=== PATIENT | female | born 1985 | race Caucasian/White ===

== ENCOUNTER → 2020-06-25 01:27 | Outpatient (CLI) | payer OTHER, SELFPAY ==
[2020-06-25 18:53] LABS: SARS-CoV-2 RNA PCR Negative
== END ==
PROVIDERS: PCP Family Medicine Adolescent Medicine; Visit Provider Internal Medicine Gastroenterology
DX: Z01.812 Encounter for preprocedural laboratory examination (principal); Z20.822 Contact with and (suspected) exposure to COVID-19
CPT/HCPCS: C9803; U0003; U0005

== ENCOUNTER 2020-06-28 02:54 | Day surgery (SDC) | payer OTHER, SELFPAY ==
[2020-06-22 14:03] VITALS: BMI 29.2
[2020-06-28] MEDS: LACTATED RINGERS 1,000 ML 150 ML IV CONT (13:38)
[2020-06-28 13:48] VITALS: BP 110/70; PULSE 67; RESP 16; TEMP 36.6; O2SAT 98; BMI 28.9
--- NOTE | 2020-06-28 13:48 | WPDANESEPPF ---
Anes - Initial Pre Proc Eval Procedure: Operation Date: 06/28/20 14:15 Proposed Procedures p Esophagogastroduodenoscopy & Colonoscopy - Roc Carias MD Date/Time: 06/28/20 13:48 Surgeon: Roc Carias MD Pre Op Diagnosis: GERD, Diarrhea Patient Data Age: 35 Gender: F Height: 5 ft 6 in Weight: 82 kg Allergies Allergy/AdvReac Type Severity Reaction Status Date / Time SHELLFISH Allergy Mild Swelling Uncoded 06/28/20 13:43 of Lip/Tongue/Throat Home Medications Medication Instructions Recorded Confirmed Type bupropion HCl 150 mg PO BID 06/22/20 06/28/20 History dextroamphetamine-amphetamine 20 mg PO BID 06/22/20 06/28/20 History famotidine 20 mg PO DAILY 06/22/20 06/28/20 History Patient hx anesthesia problems: none Family hx anesthesia problems: none PMFSH Past Medical History Medical History (Updated 06/28/20 @ 13:45 by Donnie Duckworth MD) GERD (gastroesophageal reflux disease) Family History Family History (Updated 11/12/13 @ 07:13 by DOCTOR UNKNOWN) Father Hypertension Family history of heart disease in male family member before age 55 Social History Social History Years smoked: 16 Smoking status: Current every day smoker Tobacco type: cigarettes Alcohol intake: current Drinks per week: 2 Living arrangements: with family Gender identity (if verbalized by the patient): Female Spiritual care concerns: No Anes - Eval Final PreProcedure Day of Procedure 06/28/20 13:48 Patient weight: overweight Heart: regular rate and rhythm Lungs: clear to auscultation Airway: Mallampati scale class II Neurological: alert and oriented Last oral intake: >/= 8 hours ASA classification: II Emergent: no Anesthetic plan: proceed Anesthesia type and monitoring: general GIVS and standard monitoring Informed Consent: The patient's anesthetic plan and its attendant risks and benefits were discussed with the patient/family/POA. Questions were solicited and answers provided to the satisfaction of the patient/family/POA.
--- NOTE | 2020-06-28 14:41 | PM.HPGS ---
History of Present Illness History of Present Illness Consent: Risks, benefits, and alternatives have been discussed and questions answered. Patient agrees to proceed with procedure. Chief complaint: GERD, Diarrhea Narrative: Jonna Cruz is a 35 year old female with years of GERD on pepcid/nexium as needed but more symptomatic lately, also she is due to have a colonoscopy (last one 7 years ago, her mother had anal cancer) Review of Systems Constitutional: Constitutional: Denies headache(s) and Denies weakness Eyes: Eyes: Denies blurry vision ENT: Reports Normal hearing present, Denies headache(s) and Denies neck pain Cardiovascular: Cardiovascular: Denies chest pain and Denies dyspnea Respiratory: Respiratory: Denies dyspnea Gastrointestinal: Gastrointestinal: Reports no additional gastrointestinal complaints Genitourinary: Genitourinary: Denies dysuria Musculoskeletal: Musculoskeletal: Denies neck pain Integumentary/Breasts: Skin/Breast: Denies dry skin Neurologic: Reports Normal hearing present, Denies headache(s) and Denies weakness Psychiatric: Psychiatric: Denies anxiety Endocrine: Endocrine: Denies change in body appearance Hematologic/Lymphatic: Hematologic/Lymphatic: Denies easy bleeding Allergic/Immunologic: Allergic/Immunologic: Denies urticaria PMFSH Past Medical History Medical History (Updated 06/28/20 @ 14:42 by Roc Carias MD) Colon cancer screening GERD (gastroesophageal reflux disease) Family History Family History (Updated 11/12/13 @ 07:13 by DOCTOR UNKNOWN) Father Hypertension Family history of heart disease in male family member before age 55 Social History Social History Years smoked: 16 Smoking status: Current every day smoker Tobacco type: cigarettes Alcohol intake: current Drinks per week: 2 Living arrangements: with family Gender identity (if verbalized by the patient): Female Spiritual care concerns: No Meds Home Medications and Allergies Home Medications Medication Instructions Recorded Confirmed Type bupropion HCl 150 mg PO BID 06/22/20 06/28/20 History dextroamphetamine-amphetamine 20 mg PO BID 06/22/20 06/28/20 History famotidine 20 mg PO DAILY 06/22/20 06/28/20 History Allergies Allergy/AdvReac Type Severity Reaction Status Date / Time SHELLFISH Allergy Mild Swelling Uncoded 06/28/20 13:43 of Lip/Tongue/Throat Vital Signs Vital Signs - 24 hr 06/28/20 13:48 Temperature 97.9 F Pulse Rate 67 Respiratory Rate 16 Blood Pressure 110/70 Pulse Oximetry 98 Exam Const: General: comfortable and no acute distress HENMT: General nose exam: Normal nares present Eyes: General: appearance normal, both eyes and all related structures Neck: Neck: no JVD Resp: Auscultation: clear to auscultation bilaterally Cardio: Rate: regular rate Rhythm: regular rhythm GI: Inspection: non-distended GI Palp: Yes Soft to palpation Skin: General skin exam: normal color Neuro: General: gait normal Speech: normal speech Extrem: General: normal to inspection Psych: Mental Status: mental status grossly normal Assessment and Plan Assessment and plan (1) Colon cancer screening: Code(s): Z12.11 - Encounter for screening for malignant neoplasm of colon Status: Acute Assessment and Plan: colonoscopy (2) GERD (gastroesophageal reflux disease): Code(s): K21.9 - Gastro-esophageal reflux disease without esophagitis Status: Inactive Assessment and Plan: egd with bx
[2020-06-28] MEDS: BENZOCAINE (*SP) 60 ML SPRAY CAN (HURRICAINE) 1 SPRAY MUCOUS MEM (14:48)
--- NOTE | 2020-06-28 15:14 | SUR.OPER ---
EGD START 1449, END 1455 COLONOSCOPY START 1501, END 1512
[2020-06-28 15:15] VITALS: BP 89/53; PULSE 72; RESP 15; O2SAT 94
[2020-06-28 15:25] VITALS: BP 92/53; PULSE 71; RESP 16; O2SAT 99
[2020-06-28 15:35] VITALS: BP 96/60; PULSE 60; RESP 18; O2SAT 100
== END 2020-06-28 16:01 | disposition home or self-care (01) ==
PROVIDERS: PCP Family Medicine Adolescent Medicine; Visit Provider Internal Medicine Gastroenterology
PROC: 0DJ08ZZ Inspection of Upper Intestinal Tract, Via Natural or Artificial Opening Endoscopic (ICD-10-PCS; CPT 43235; principal; 2020-06-28 14:15)
DX: Z12.11 Encounter for screening for malignant neoplasm of colon (principal); D12.3 Benign neoplasm of transverse colon; D12.4 Benign neoplasm of descending colon; K64.8 Other hemorrhoids; R19.7 Diarrhea, unspecified; K29.50 Unspecified chronic gastritis without bleeding; K21.00 Gastro-esophageal reflux disease with esophagitis, without bleeding; K44.9 Diaphragmatic hernia without obstruction or gangrene; F17.210 Nicotine dependence, cigarettes, uncomplicated; Z80.0 Family history of malignant neoplasm of digestive organs
CPT/HCPCS: 45385; 43239; 88305; C9803; J2704; J7120; U0003; U0005

== ENCOUNTER → 2021-07-18 13:57 | Outpatient (CLI) | payer BC, SELFPAY ==
--- NOTE | ~2021-07-18 | XR_ITS ---
EXAMINATION: XR chest 2V Exam Date/Time: 07/18/2021 14:12 CDT CLINICAL HISTORY: R07.9 - Chest pain, unspecified Comparison: 03/17/13. RESULT: Lines, tubes, and devices: None. Lungs and pleura: Clear. Cardiomediastinal silhouette: Stable cardiomediastinal silhouette. Other: No acute osseous or upper abdominal finding. IMPRESSION: No acute cardiopulmonary process Reviewed, dictated and finalized at location K.
== END ==
PROVIDERS: PCP Physician Assistant; Visit Provider Physician Assistant
DX: R07.9 Chest pain, unspecified (principal)
CPT/HCPCS: 71046

== ENCOUNTER 2022-07-31 12:50 | Outpatient (CLI) | payer BC, SELFPAY ==
--- NOTE | ~2022-07-31 | CT_ITS ---
EXAMINATION: CTA brain DATE: 07/31/2022 13:22 INDICATION: Tinnitus, right ear. TECHNIQUE: Computed tomographic angiography (CTA) of the head was performed without and with 100 mL O mnipaque-350 intravenous contrast. Automated exposure control and iterative reconstruction technique were employed. The dose-length product was 1147.12 mGy-cm. Maximum intensity projection 3D reconstru ctions were created. Volume-rendered 3D reconstructions of the intracranial arteries were created by the technologist on a separate workstation. COMPARISON: None. FINDINGS: There is no intracranial hemorrhage, acute infarction, or abnormal intracranial mass lesion . The ventricles are normal in size. The orbits are normal. The paranasal sinuses are clear. The mast oid air cells are normal. The internal auditory canals and inner and middle ears are normal. The vert ebral arteries are codominant. There is no significant stenosis of basilar artery or the posterior ce rebral arteries. There is no significant stenosis of the intracranial internal carotid arteries or an terior or middle cerebral arteries. Anterior communicating artery is normal. Posterior communicating arteries are not identified. There is no aneurysm. IMPRESSION: 1. Normal brain. 2. No aneurysm or significant intracranial arterial stenosis. Reviewed, dictated and finalized at location A.
== END 2022-07-31 12:51 ==
PROVIDERS: PCP Family Medicine Adolescent Medicine; Visit Provider Otolaryngology
DX: H93.19 Tinnitus, unspecified ear (principal)
CPT/HCPCS: 70496; Q9967

== ENCOUNTER 2022-08-02 13:03 | Outpatient (CLI) | payer BC, SELFPAY | END 2022-08-02 13:04 | disposition home or self-care (01) | LOC: ANHAUDASC 13:04 | PROVIDERS: PCP Family Medicine Adolescent Medicine; Visit Provider Otolaryngology | DX: H93.19 Tinnitus, unspecified ear (principal) | CPT/HCPCS: 92557; 92567 ==

== ENCOUNTER 2023-02-22 08:02 | Emergency (ER) | payer BC, SELFPAY ==
--- NOTE | 2023-02-22 08:04 | ED.URI ---
HPI - URI/Sore Throat General Chief Complaint: Upper Respiratory Infection Stated Complaint: Dry Cough, Sore Throat Time Seen by Provider: 02/22/23 08:32 Source: patient and RN notes reviewed Mode of arrival: ambulatory Limitations: no limitations History of Present Illness HPI Narrative: 37-year-old female presents with concern for 2 week history of nasal congestion, sinus pressure, sore throat, dry deep cough. She reports she was taking [id number]-[id number] medications that have not helped. MD elicited complaint: cough, sore throat and nasal congestion Related Data Home Medications Medication Instructions Recorded Confirmed bupropion HCl 150 mg tablet,12 hr 150 mg PO BID 06/22/20 02/22/23 sustained-release dextroamphetamine-amphetamine ER 30 mg PO DAILY 07/18/21 02/22/23 30 mg 24hr capsule,extend release Allergies Allergy/AdvReac Type Severity Reaction Status Date / Time SHELLFISH Allergy Mild Swelling Uncoded 08/14/22 10:52 of Lip/Tongue/Throat Review of Systems Review of Systems: CONSTITUTIONAL: Denies malaise, chills, sweats, or fever. EYES: Denies visual changes, redness, or discharge. ENT: Reports rhinorrhea, congestion, sinus pain, and sore throat. CARDIOVASCULAR: Denies chest pain, palpitations, or edema. RESPIRATORY: Reports cough. Denies dyspnea. GASTROINTESTINAL: Denies abdominal pain, nausea, vomiting, diarrhea SKIN: Denies rash or itching. MUSCULOSKELETAL: Denies myalgia. NEUROLOGIC: Denies headache. All systems reviewed & are unremarkable except as noted in HPI and below PMFSH Past Medical History Medical History Colon cancer screening GERD (gastroesophageal reflux disease) Surgical History Surgical History Hx of cholecystectomy Family History Family History Father Hypertension Family history of heart disease in male family member before age 55 Cerebrovascular accident Diabetes mellitus Heart disease Grandparent Cerebrovascular accident Heart disease Brain aneurysm Mother Hypertension Anal cancer Hyperthyroidism Social History Social History Social History: Caffeine-daily Smoking packs per day: 0.5 Smoking cigarettes per day: 10.0 Years smoked: 16 Smoking pack-years: 8.00 Smoking status: Former smoker Tobacco type: e-cigarettes/vaping Second hand tobacco smoke exposure: No Smoking end date: 04/18/22 Alcohol intake: current Drinks per week: 2 Alcohol use details: occasional Substance use: never Substance use type: does not use Lack of Transportation: No Lack of Food: Never True Current Housing: I Have Housing Concerned About Future Housing: No Difficulty Paying Gas/Electric Bills: No Difficulty Paying for Meds: No Currently Unemployed: No Education: High School Diploma/GED Difficulty w/ Childcare or Family Care: No Living arrangements: with family Occupation/Education: occupation Gender identity (if verbalized by the patient): Female Sexual Orientation (if Verbalized by the Patient): Straight or Heterosexual Spiritual care concerns: No Agree to blood products: Yes Comments At time of signature, agree with nursing past medical, surgical, social and family history. There is no relevant family history pertinent to the presenting complaint Exam Narrative: GENERAL: Well-appearing, well-nourished, and in no acute distress. HEAD: Normocephalic EYES: PERRLA, conjunctivae clear ENT: Nares clear, turbinates edematous and erythematous. Mucous membranes moist. TM pearly mccauley with dull light reflex bilaterally; no tragal tenderness. Oropharynx not erythematous without lesions. Tonsils not enlarged and without exudate, no drooling, no hoarseness, no trismus, uvula midline. NEC
[2023-02-22 08:29] VITALS: BP 122/76; PULSE 92; RESP 16; TEMP 37.1; O2SAT 99
== END 2023-02-22 08:57 | disposition home or self-care (01) ==
PROVIDERS: Emergency Provider Nurse Practitioner; PCP Family Medicine Adolescent Medicine
DX: J40 Bronchitis, not specified as acute or chronic (principal); F17.210 Nicotine dependence, cigarettes, uncomplicated; Z79.899 Other long term (current) drug therapy
CPT/HCPCS: 87081; 87880; 99213; G0463

== ENCOUNTER 2024-03-12 21:56 | Emergency (ER) | payer OTHER, SELFPAY ==
[2024-03-12 21:57] VITALS: BP 131/92; PULSE 91; RESP 18; TEMP 36.9; O2SAT 97
--- NOTE | 2024-03-12 22:08 | ED_ITS ---
HPI - Nausea/Vomiting/Diarrhea General Chief complaint: Nausea/Vomiting/Diarrhea Stated complaint: n/v/d Time Seen by Provider: 03/12/24 22:03 Source: patient Mode of arrival: ambulatory Limitations: no limitations History of Present Illness HPI Narrative: this is a 38-year-old female with no significant past medical history presents with a 1 day history of nausea vomiting and diarrhea with some mild crampy abdo dajuan pain no fever chills vitals are stable no chest pain or shortness of breath. MD elicited complaint: nausea, vomiting and diarrhea Onset (ago): day(s) Description of vomiting: watery Associated nausea: Yes Related Data Home Medications ?Medication ?Instructions ?Recorded ?Confirmed ?Last Taken ?Type bupropion HCl 150 mg tablet,12 hr 150 mg PO BID 06/22/20 08/22/23 06/26/20 History sustained-release dextroamphetamine-amphetamine ER 30 mg PO DAILY 07/18/21 08/22/23 Unknown History 30 mg 24hr capsule,extend release Allergies Allergy/AdvReac Type Severity Reaction Status Date / Time SHELLFISH Allergy Mild Swelling Uncoded 08/22/23 13:40 of Lip/Tongue/Throat Review of Systems Review of Systems: All systems reviewed & are unremarkable except as noted in HPI and below PMFSH Past Medical History Medical History Colon cancer screening GERD (gastroesophageal reflux disease) Surgical History Surgical History Hx of cholecystectomy Family History Family History Father Hypertension Family history of heart disease in male family member before age 55 Cerebrovascular accident Diabetes mellitus Heart disease Grandparent Cerebrovascular accident Heart disease Brain aneurysm Mother Hypertension Anal cancer Hyperthyroidism Social History Social History Social History: Caffeine-daily Smoking packs per day: 0.5 Smoking cigarettes per day: 10.0 Years smoked: 16 Smoking pack-years: 8.00 Smoking status: Former smoker Tobacco type: e-cigarettes/vaping Second hand tobacco smoke exposure: No Smoking end date: 04/18/22 Alcohol intake: current Drinks per week: 2 Alcohol use details: occasional Substance use: never Substance use type: does not use Lack of Transportation: No Lack of Food: Never True Current Housing: I Have Housing Concerned About Future Housing: No Difficulty Paying Gas/Electric Bills: No Difficulty Paying for Meds: No Currently Unemployed: No Education: High School Diploma/GED Difficulty w/ Childcare or Family Care: No Living arrangements: with family Occupation/Education: occupation Gender identity (if verbalized by the patient): Female Sexual Orientation (if Verbalized by the Patient): Straight or Heterosexual Spiritual care concerns: No Agree to blood products: Yes Exam Const: General: healthy appearing and no acute distress Nutritional Appearance: well nourished Orientation/consciousness: patient oriented x3 Limitations: no limitations Resp: Effort & Inspection: normal respiratory effort Auscultation: clear to auscultation bilaterally Cardio: Rate: regular rate Rhythm: regular rhythm GI: GI Palp: Yes Soft to palpation Auscultation: normal bowel sounds Skin: General skin exam: normal color Rashes: no rashes Wounds: no wounds Neuro: General: patient oriented x3, moves all extremities and no meningeal signs Course Course Emergency Course: Patient received IV fluids with normal saline along with IV Zofran and CMP performed and reviewed with patient. Vital Signs Vital signs: Vital Signs Temperature 36.9 C 03/12/24 21:57 Pulse Rate 91 03/12/24 21:57 Respiratory Rate 18 03/12/24 21:57 Blood Pressure 131/92 H 03/12/24 21:57 Pulse Oximetry 97 03/12/24 21:57 Oxygen Delivery Room Air 03/12/24 21:57 Temperature 36.9 C 03/12/24 21:57 Pulse Rate 91 03/12/24 21:57 Respiratory Rate 18 03/12/24 21:57 Blood Pressure 131/92 H 03/12/24 21:57 Pulse Oximetry 97 03/12/24 21:57 Oxygen Delivery Room Air 03/12/24 21:57 Critical Care Time Critical Care Time Critical Care Time: No Discharge Plan Discharge Clinical Impression: Gastroenteritis Patient Disposition: Home, Self-Care Condition: Stable Instructions: Antibiotic Form, Clear Liquid Diet (ED), Gastroenteritis (ED) Additional Instructions: Take medicine as prescribed and follow up with primary within the next week for further evaluation and treatment. Patient Language: Amharic Prescriptions: New ondansetron 4 mg tablet,disintegrating 4 mg PO Q6H PRN (Reason: nausea and vomiting) Qty: 14 0RF No Action dextroamphetamine-amphetamine 30 mg capsule,extended release 24hr 30 mg PO DAILY mupirocin 2 % ointment 1 applic topical BID Qty: 22 0RF bupropion HCl 150 mg tablet sustained-release 12 hr 150 mg PO BID Follow-up/Referrals: Jose Park MD [Primary Care Provider] -
[2024-03-12] MEDS: SODIUM CHLORIDE 0.9% IV 1,000 ML 999 ML IV CONT (22:23)
[2024-03-12] MEDS: ONDANSETRON INJ 4 MG/2 ML VIAL IV PUSH (22:23)
[2024-03-12 22:49] LABS: Alanine Aminotransferase 23 U/L (14-59); Albumin Level 3.1 g/dL (3.4-5.0); Alkaline Phosphatase 67 U/L (46-116); Anion Gap 8 mmol/L (4-12); Aspartate Amino Transferase 18 U/L (15-37); Bilirubin,Total 0.6 mg/dL (0.00-1.00); Blood Urea Nitrogen 11 mg/dL (7-18); Calcium 8.1 mg/dL (8.5-10.1); Carbon Dioxide 28 mmol/L (21-32); Chloride 107 mmol/L (98-108); Estimated CRCL calculation 91 ml/min; Estimated Glomerular Filt Rate > 60; Glucose 102 mg/dL (70-99); Osmolality Calculated 295 mOsm/kg (285-295); Potassium 3.5 mmol/L (3.5-5.1); Sodium 143 mmol/L (136-145); Total Protein 6.1 g/dL (6.4-8.2)
[2024-03-12 23:10] VITALS: BP 130/90; PULSE 85; RESP 16; O2SAT 85
== END 2024-03-12 23:10 | disposition home or self-care (01) ==
LOC: CHSED 22:31
PROVIDERS: Emergency Provider Emergency Medicine; PCP Family Medicine Adolescent Medicine
DX: K52.9 Noninfective gastroenteritis and colitis, unspecified (principal); Z87.891 Personal history of nicotine dependence
CPT/HCPCS: 36415; 80053; 96361; 96374; 99284; J2405; J7030

== ENCOUNTER 2024-03-17 11:43 | Outpatient (CLI) | payer OTHER, SELFPAY ==
--- NOTE | ~2024-03-17 | MM_ITS ---
EXAMINATION: MM screening ernst BI w fabiola HISTORY: Screening mammogram TECHNIQUE: Craniocaudal and mediolateral oblique 3-D tomosynthesis images were obtained and synthetic 2-D images were generated. CAD analysis was submitted and interpreted. COMPARISON: No prior mammogram is available for comparison at this institution. BREAST PARENCHYMAL COMPOSITION:Not Dense. There are scattered areas of fibroglandular density. FINDINGS: There is asymmetric density at the upper right breast on MLO view. There is asymmetry at th e inner left breast on CC. No suspicious mammographic calcifications. IMPRESSION: Bilateral breast asymmetries, as above. Spot compression views, and possibly ultrasound, are recomme nded for further evaluation. BI-RADS Category 0: Incomplete: Needs additional imaging evaluation. Reviewed, dictated and finalized at location . OUT WORKER IMPRESSION: Bilateral breast asymmetries, as above. Spot compression views, and possibly u ltrasound, are recommended for further evaluation. BI-RADS Category 0: Incomplete: Needs additional imaging evaluation.
== END 2024-03-17 11:44 | disposition home or self-care (01) ==
LOC: ANHIMG 11:44
PROVIDERS: PCP Family Medicine Adolescent Medicine; Visit Provider Obstetrics & Gynecology
DX: Z12.31 Encounter for screening mammogram for malignant neoplasm of breast (principal); N64.89 Other specified disorders of breast
CPT/HCPCS: 77063; 77067

== ENCOUNTER 2024-04-01 12:03 | Outpatient (CLI) | payer OTHER, SELFPAY ==
--- NOTE | ~2024-04-01 | MMUS_ITS ---
EXAMINATION: MM diagnostic ernst BI w fabiola, US breast RT limited HISTORY: Bilateral breast asymmetries TECHNIQUE: Additional 3-D tomosynthesis images of the breasts were performed and synthetic 2-D images were generated. CAD analysis was submitted and interpreted. High resolution limited right breast ult rasound was performed. COMPARISON: 03/17/2024 BREAST PARENCHYMAL COMPOSITION:Not Dense. There are scattered areas of fibroglandular density. FINDINGS: MAMMOGRAPHIC FINDINGS: The inner left breast asymmetry effaces the sac compression. No persistent lesion distortion seen in this region. Spot compression views of the upper left breast demonstrate a persistent mildly lobulate d low-density mass measuring 16 mm in maximal length.. ULTRASOUND: At the 1:00 position right breast, 3 cm the nipple, there is a 1.0 x 0.3 x 0.4 cm parallel mildly lob ulated anechoic cyst. At the 12:00 position right breast, 2 cm from the nipple, there is a 1.3 x 1.5 x 0.4 cm somewhat reniform hypoechoic mass, which could reflect lymph node or cluster of cysts. IMPRESSION: Probable lymph node versus cluster of cysts at the 12:00 position right breast, 2 cm of the nipple. Six-month follow-up ultrasound of the right breast in this region recommended to assure stability. BI-RADS category 3, probably benign findings. Reviewed, dictated and finalized at [facility]. SPECIAL PROCEDURES TECHNOLOGIST IMPRESSION: Probable lymph node versus cluster of cysts at the 12:00 position right breast , 2 cm of the nipple. Six-month follow-up ultrasound of the right breast in thi s region recommended to assure stability. BI-RADS category 3, probably benign findings.
== END 2024-04-01 12:04 | disposition home or self-care (01) ==
LOC: ANHIMG 12:07
PROVIDERS: PCP Family Medicine Adolescent Medicine; Visit Provider Obstetrics & Gynecology
DX: R92.8 Other abnormal and inconclusive findings on diagnostic imaging of breast (principal)
CPT/HCPCS: 76642; 77062; 77066; G0279

== ENCOUNTER 2024-09-29 10:14 | Outpatient (CLI) | payer OTHER, SELFPAY ==
--- NOTE | ~2024-09-29 | US_ITS ---
US breast RT limited 09/29/2024 10:44 Indication: Six-month follow-up Procedure: High-resolution Limited ultrasound of the right breast Comparison: Percent 04/01/2024 Findings: At 12:00, 2 cm from the nipple there is a stable 1.5 cm septated cyst measuring 1.5 x 1.4 x 0.4 cm compared with 1.5 x 1.3 x 0.4 cm on 04/01/2024. At 1:00, 3 cm from the nipple there is a clust er of microcysts measuring 8 mm, benign. At 1:00, 3 cm from the nipple there is a second cluster of m icrocysts measuring 1 cm. No suspicious masses to suggest malignancy. Impression: 1: No evidence for malignancy in the right breast. Benign findings. Routine yearly screening mammogram and regular clinical breast examination are recommended. BI-RADS CATEGORY 2 - BENIGN FINDINGS Reviewed, dictated and finalized at location B. Impression: 1: No evidence for malignancy in the right breast. Benign findings. Routine yearly screening mammogram and regular clinical breast examination are recommended. BI-RADS CATEGORY 2 - BENIGN FINDINGS
--- OUTSIDE RECORDS SUMMARY | 2024-09-29 10:32 | XMS_ITS | Referral Summary ---
Author Organization [facility] [place] [facility] Address [address] [place] [id number] Care Team Providers Care Material Combiner Name Role Phone Sujey Olea MD Primary Care Provide r Allergies No known active allergies Medications buPROPion SR (WELLBUTRIN SR) 150 mg 12 hr tablet Take 1 tablet (150 mg total) by mouth every morning 03/06/2023 Active Active Problems Problem Noted Date Diagnosed Date Thyroid nodule 03/28/2023 Assessment & Plan (05/03/2023 12:38 PM BOOKMOBILE CLERK): Thyroid ultrasound done today Shows enlargement of the dominant left nodule Scheduled to repeat FNA Update TSH Decreased libido 03/28/2023 Overview (03/28/2023): Check FSH, free and total testosterone, LH, estradiol levels Recommendations to follow Assessment & Plan (04/01/2023 1:20 PM BOOKMOBILE CLERK): Check FSH, free and total testosterone, LH, estradiol levels Recommendations to follow Weight gain 03/28/2023 Assessment & Plan (03/28/2023 5:25 PM BOOKMOBILE CLERK): Diet and exercise Check hemoglobin A1c Overweight (BMI 25.0-29.9) 09/27/2016 Assessment & Plan (08/15/2017 2:23 PM CDT): Diet and exercise Continue Phentermine Assessment & Plan (04/04/2017 2:00 PM BOOKMOBILE CLERK): Diet and exercise Continue Phentermine. Assessment & Plan (09/27/2016 1:51 PM CDT): Diet and exercise Continue Phentermine. Non-toxic multinodular goiter 04/14/2013 Overview (06/21/2016): NONTOX MULTINODUL GOITER Assessment & Plan (04/04/2017 2:00 PM BOOKMOBILE CLERK): Ultrasound reported today When compared with ultrasound report from 2012 and 2014, there is no significant increase in the size of the left lobe nodule . Assessment & Plan (09/27/2016 1:50 PM CDT): No local symptoms No changes on PE Check TFT's Social History Tobacco Use Types Packs/Day Years Used Date Smoking Tobacco: Former Alcohol Use Standard Drinks/Week Comments Yes 0 (1 standard drink = 0.6 oz pur e alcohol) Comments Unknown Sex and Gender Information Value Date Recorded Sex Assigned at Not on file Legal Sex Female 11:09 AM BOOKMOBILE CLERK Gender Identity Not on file Sexual Orientation Not on file Last Filed Vital Signs Vital Sign Reading Time Taken Comments Blood Pressure 120/70 03/28/2023 12:09 PM BOOKMOBILE CLERK Pulse 81 03/28/2023 12:09 PM BOOKMOBILE CLERK Temperature - - Respiratory Rate 17 03/28/2023 12:09 PM BOOKMOBILE CLERK Oxygen Saturation - - Inhaled Oxygen Concentration - - Weight 88.1 kg (194 lb 4.8 oz) 03/28/2023 12:09 PM BOOKMOBILE CLERK Height 172.7 cm (5' 8) 03/28/2023 12:09 PM BOOKMOBILE CLERK Body Mass Index 29.54 03/28/2023 12:09 PM BOOKMOBILE CLERK Plan of Treatment Not on file Insurance [facility] [employer] [place] [employer] [facility] HMO Care Teams Material Combiner Relationship Specialty Start Date End Date Sujey Olea MD [address] [place] [address] PCP - General 06/19/16
--- OUTSIDE RECORDS SUMMARY | 2024-09-29 10:32 | XMS_ITS | Clinical Summary ---
Author Organization [facility] Address [address] [place] [id number] Care Team Providers Care Technician Assistant Name Role Phone Sujey Olea MD Primary Care Provide r Allergies No known active allergies Medications buPROPion SR (WELLBUTRIN SR) 150 mg 12 hr tablet Take 1 tablet (150 mg total) by mouth every morning 03/06/2023 Active Active Problems Problem Noted Date Diagnosed Date Thyroid nodule 03/28/2023 Assessment & Plan (05/03/2023 12:38 PM SMOKE JUMPER): Thyroid ultrasound done today Shows enlargement of the dominant left nodule Scheduled to repeat FNA Update TSH Decreased libido 03/28/2023 Overview (03/28/2023): Check FSH, free and total testosterone, LH, estradiol levels Recommendations to follow Assessment & Plan (04/01/2023 1:20 PM SMOKE JUMPER): Check FSH, free and total testosterone, LH, estradiol levels Recommendations to follow Weight gain 03/28/2023 Assessment & Plan (03/28/2023 5:25 PM SMOKE JUMPER): Diet and exercise Check hemoglobin A1c Overweight (BMI 25.0-29.9) 09/27/2016 Assessment & Plan (08/15/2017 2:23 PM CDT): Diet and exercise Continue Phentermine Assessment & Plan (04/04/2017 2:00 PM SMOKE JUMPER): Diet and exercise Continue Phentermine. Assessment & Plan (09/27/2016 1:51 PM CDT): Diet and exercise Continue Phentermine. Non-toxic multinodular goiter 04/14/2013 Overview (06/21/2016): NONTOX MULTINODUL GOITER Assessment & Plan (04/04/2017 2:00 PM SMOKE JUMPER): Ultrasound reported today When compared with ultrasound report from 2012 and 2014, there is no significant increase in the size of the left lobe nodule . Assessment & Plan (09/27/2016 1:50 PM CDT): No local symptoms No changes on PE Check TFT's Surgical History Surgery Date Site/Laterality Comments CHOLECYSTECTOMY Cholecystectomy Medical History Medical History Date Comments Hx Other Medical Not Claustropho bic; Comments: [facility] 12/22/2013 - Family History Medical History Relation Name Comments Pancreatitis Father Hypothyroidism Mother Heart disease Other 1 Family history of Heart disease; Other Other 2 No family histo ry of Diabetes mellitus; Relation Name Status Comments Father Mother Other 1 Other 2 Social History Tobacco Use Types Packs/Day Years Used Date Smoking Tobacco: Former Alcohol Use Standard Drinks/Week Comments Yes 0 (1 standard drink = 0.6 oz pur e alcohol) Comments Unknown Sex and Gender Information Value Date Recorded Sex Assigned at Not on file Legal Sex Female 11:09 AM SMOKE JUMPER Gender Identity Not on file Sexual Orientation Not on file Obstetrics History Last Filed Vital Signs Vital Sign Reading Time Taken Comments Blood Pressure 120/70 03/28/2023 12:09 PM SMOKE JUMPER Pulse 81 03/28/2023 12:09 PM SMOKE JUMPER Temperature - - Respiratory Rate 17 03/28/2023 12:09 PM SMOKE JUMPER Oxygen Saturation - - Inhaled Oxygen Concentration - - Weight 88.1 kg (194 lb 4.8 oz) 03/28/2023 12:09 PM SMOKE JUMPER Height 172.7 cm (5' 8) 03/28/2023 12:09 PM SMOKE JUMPER Body Mass Index 29.54 03/28/2023 12:09 PM SMOKE JUMPER Plan of Treatment Health Maintenance Due Date Last Done Comments Breast Cancer Screening-Mammogram 1983 Cervical Cancer Screening 1983 Hepatitis C Screening 1983 DTaP/Tdap/Td Vaccine (1 - Tdap) 1994 Varicella Vaccines (1 of 2 - 13+ 2-dose series) 1996 Hepatitis B Screening 2001 Regular Well Visit/Exam 18-64 2001 Depression Screening 08/15/2018 08/15/2017, 04/04/2017, 09/27/2016 Influenza Vaccine (#1) 2024 HPV Vaccines Aged Out No longer eligi ble based on patient's age to complete this topic Pneumococcal vaccine <65 Aged Out No longer eligible based on patient's age to complete this topic Insurance [employer] ACCESS ME BLUE ACCESS ME [employer] HMO Care Teams Technician Assistant Relationship Specialty Start Date End Date Sujey Olea MD [id number] [facility] [address] [place] [address] PCP - General 06/19/16
== END 2024-09-29 10:15 | disposition home or self-care (01) ==
LOC: ANHIMG 10:20
PROVIDERS: PCP Family Medicine Adolescent Medicine; Visit Provider Obstetrics & Gynecology
DX: R92.8 Other abnormal and inconclusive findings on diagnostic imaging of breast (principal)
CPT/HCPCS: 76642